=== PATIENT | male | born 1950 | race Caucasian/White ===

== ENCOUNTER 2020-12-09 12:18 | Emergency (ER) | payer OTHER, SELFPAY ==
[2020-12-09 12:46] VITALS: BP 108/71; PULSE 59; RESP 18; TEMP 36.4; O2SAT 99; BMI 29.1
--- NOTE | 2020-12-09 13:40 | ED_ITS ---
HPI - Skin/Abscess/Foreign Bdy General: Chief complaint: Animal Bite Stated complaint: Spider bite, sent by [facility] Time Seen by Provider: 12/09/20 12:54 History of Present Illness: HPI narrative: 70-year-old male presents emergency room with abscess on the left upper chest just above the mammary line. And medial. He has attempted to manipulate it to drain it at home and created a fistulous track it is now gotten more swollen and inflamed. Began last week and progressively worsened. She has been on Keflex with no improvement. Additionally he has diabetic and is on clopidogrel. MD complaint: abscess/boil Onset (ago): day(s) Tetanus up to date: unsure Location: chest Severity: moderate Quality: sharp Pain Consistency: constant Relieving factors: none Exacerbating factors: palpation and movement Associated symptoms: Reports itching; Deny arthralgias, chills, cough, fever(s), myalgias, nausea, rigidity, short of breath or vomiting Treatments prior to arrival: attempted to drain pus at home and antibiotic Review of Systems Const: Denies: fever(s) or chills ENMT: Denies: throat pain, ear or mastoid pain, nasal discharge or nasal congestion Card: Denies: chest pain, edema, dyspnea on exertion or orthopnea Resp: Denies: dyspnea, productive cough or non-productive cough GI: Denies: nausea or vomiting : Denies: flank pain, dysuria, urinary frequency or urinary urgency Skin/Breast: Denies: rash or pruritus PFSH ED PFSH: Medical History ASHD (arteriosclerotic heart disease) Atherosclerotic heart disease of [place] coronary artery without angina pectoris The EKG done today, 01/21/2020 revealed a sinus rhythm with a right bundle branch block. 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 No acute ST-T changes. Benign essential HTN Cardiomyopathy Diabetes Dyslipidemia (high LDL; low HDL) Hypertension Ischemic cardiomyopathy Mixed hyperlipidemia Surgical History S/P cataract surgery Family History Other Cancer Stroke Social History Smoking and tobacco status: never smoked Second hand smoke exposure: No Alcohol intake: never Caregiver/support person: Yes Lives independently: Yes Household members: significant other Current occupational status: employed History of recent travel: No Current gender identity: Male Special baljit needs: No Physical Exam Const: COMMON NORMALS: no acute distress GENERAL APPEARANCE: cooperative and comfortable ORIENTATION/CONSCIOUSNESS: Yes awake, Yes oriented to person, Yes oriented to place and Yes oriented to time HENMT: COMMON NORMALS: normocephalic, atraumatic and hearing grossly normal bilaterally HEAD & SCALP: normocephalic and atraumatic Neck/C-Spine: COMMON NORMALS: no JVD Resp: COMMON NORMALS: normal respiratory effort, No retractions, No use of accessory muscles and clear to auscultation bilaterally AUSCULTATION: clear to auscultation bilaterally Cardio: COMMON NORMALS: no JVD, regular rate, regular rhythm and No murmurs present (Cardio) RATE: regular rate RHYTHM: regular rhythm GI: COMMON NORMALS: Soft to palpation and No hepatosplenomegaly present AUSCULTATION: Yes normoactive bowel sounds PALPATION: Yes Soft to palpation, No Tenderness to palpation present (GI), No Guarding due to palpation present (GI) and Yes No hepatosplenomegaly present Extremity: COMMON NORMALS: normal to inspection, capillary refill normal, no clubbing, cyanosis or edema, no calf tenderness and no pedal edema Neuro: SENSORIUM/ORIENTATION: Yes oriented to person, Yes oriented to place and Yes oriented to time Skin: NARRATIVE SKIN EXAM: Erythematous fluctuant skin lesion on the left medial chest just superior to the inframammary line and medial. Immediately adjacent to the sternum. Bedside ultrasound shows a small abscess cavity disseminated out underneath the skin. There is a central darkened eschar where patient attempted to create drainage at home. Does NOT appear to be necrotic tissue that is usually associated with brown recluse bite. Procedures Abscess I/D Site: chest Local Anesthetic: lidocaine 1% and with epi Amount of anesthesia used (mL): 3 Irrigation: Yes Packing used?: plain Course Vital Signs: Vital signs: Vital Signs Temperature 97.5 F L 12/09/20 12:46 Pulse Rate 61 12/09/20 14:55 Respiratory Rate 16 12/09/20 14:55 Blood Pressure 155/87 12/09/20 14:55 Pulse Oximetry 99 12/09/20 14:55 MDM - Skin/Abscess/Foreign Bdy MDM Narrative: Medical decision making narrative: Incision and drainage cultures done started on oral antibiotics recheck if not improving return to the emergency room. Recommend that he follow-up his primary care doc tomorrow to have the packing changed. Lab Data: Labs: Lab Results 12/09/20 12/09/20 14:01 14:01 WBC 8.2 10^3/uL 10^3/ uL (4.0-10.0) RBC 3.73 10^6/uL L 10 ^6/uL (4.1-5.3) Hgb 11.2 g/dL L g/dL (11.7-16.6) Hct 33.9 % L % (42.0-52.0) MCV 90.9 fl fl (80-94) MCH 30.0 pg pg (28.0-34.0) MCHC 33.0 g/dL g/dL (30.0-36.0) RDW 12.4 % % (12.1-15.1) Plt Count 310 10^3/cmm 10^3 /cmm (130-400) MPV 9.5 fL fL (7.4-10.4) Neut % (Auto) 64.0 % % Lymph % (Auto) 19.7 % % Charlton % (Auto) 10.9 % % Eos % (Auto) 4.4 % % Baso % (Auto) 0.6 % % Neut # (Auto) 5.24 10^3/uL 10^3 /uL (1.8-7.7) Lymph # (Auto) 1.6 10^3/uL 10^3/ uL (0.8-4.8) Charlton # (Auto) 0.9 10^3/uL 10^3/ uL (0.2-0.9) Eos # (Auto) 0.4 10^3/uL 10^3/ uL (0.0-0.8) Baso # (Auto) 0.1 10^3/uL 10^3/ uL (0.0-0.1) Nucleated RBC % (a uto) 0 % % Nucleated RBCs # 0.0 /100WBC /100W BC Sodium 138 mmol/L mmol/L (136-145) Potassium 4.8 mmol/L mmol/L (3.5-5.1) Chloride 103 mmol/L mmol/L (98-107) Carbon Dioxide 28 mmol/L mmol/L (22-29) Anion Gap 11.8 (5-19) BUN 15 mg/dL mg/dL (8-23) Creatinine 0.6 mg/dL L mg/dL (0.7-1.2) GFR Calculation 133.6 mL/min H mL /min (90-130) Glucose 149 mg/dL H mg/dL (65-115) Calculated Osmolal ity 290 mOsm/kg mOsm/ kg (285-295) Calcium 9.2 mg/dL mg/dL (8.5-10.5) Total Bilirubin 0.2 mg/dL mg/dL (0.15-1.2) AST 13 U/L U/L (0-40) ALT 10 U/L U/L (0-41) Alkaline Phosphata se 55 IU/L IU/L (40-130) Total Protein 6.6 g/dL g/dL (6.6-8.7) Albumin 4.0 g/dL g/dL (3.5-5.2) Globulin 2.6 g/dL g/dL (1.3-4.6) Discharge Plan Discharge Patient Disposition: Home Clinical Impression: Cutaneous abscess of chest wall Condition: Stable Prescriptions: New Bactrim DS 800-160 mg tablet 1 tab PO BID 7 Days Qty: 14 RF: 0 hydrocodone-acetaminophen 5-325 mg tablet 1 tab PO Q6H PRN (Reason: pain) Qty: 15 RF: 0 Discontinued cephalexin 500 mg capsule 500 mg PO TID 10 Days Qty: 30 RF: 0 No Action lisinopril 20 mg tablet 20 mg PO DAILY RF: 0 isosorbide mononitrate 30 mg tablet extended release 24 hr 30 mg PO DAILY RF: 0 simvastatin 40 mg tablet 40 mg PO DAILY RF: 0 nitroglycerin [Nitrostat] 0.4 mg tablet, sublingual 0.4 mg sublingual Q5M PRNRF: 0 metoprolol tartrate 25 mg tablet 25 mg PO BID RF: 0 ibuprofen [Advil] 200 mg tablet 200 mg PO Q6H PRNRF: 0 aspirin 325 mg tablet 325 mg PO DAILY RF: 0 glipizide 5 mg tablet 5 mg PO BID RF: 0 metformin 1,000 mg tablet 1,000 mg PO BID RF: 0 clopidogrel 75 mg tablet 75 mg PO DAILY Qty: 30 RF: 3 Discharge Orders: Discharge ED (Routine); Ordered 12/09/20 Ordered By: Beka Georges Referrals: Violetta Mcnair FNP [Primary Care Provider] - Discharge Diet: Usual diet Discharge Activity: Resume usual activity Patient Instructions: Opioid Safety Activity Restrictions/Additional Instructions: Stop the Keflex, start Bactrim DS 1 p.o. twice daily until completed. Use pain medications as needed. Apply moist heat 15 minutes 3-4 times a day. Follow-up with your PCP tomorrow to have wound packing removed. Coding Level of Care Code ED Business Banking Manager for Sydneeg Fwd Exam Detailed
[2020-12-09] MEDS: tetanus-dipt-pertussis 0.5 mL SDV IM (13:50)
[2020-12-09 13:58] VITALS: RESP 16
[2020-12-09 14:16] LABS: Basophils # 0.1 10^3/uL (0.0-0.1); Basophils % 0.6 %; Eosinophils # 0.4 10^3/uL (0.0-0.8); Eosinophils % 4.4 %; Hematocrit 33.9 % (42.0-52.0); Hemoglobin 11.2 g/dL (11.7-16.6); Lymphocytes # 1.6 10^3/uL (0.8-4.8); Lymphocytes % 19.7 %; Mean Corpuscular Volume 90.9 fl (80-94); Mean Platelet Volume 9.5 fL (7.4-10.4); Monocytes # 0.9 10^3/uL (0.2-0.9); Monocytes % 10.9 %; Neutrophils # 5.24 10^3/uL (1.8-7.7); Nucleated Red Blood Cells % 0 %; Platelet Count 310 10^3/cmm (130-400); Red Blood Count 3.73 10^6/uL (4.1-5.3); Red Cell Distribution Width 12.4 % (12.1-15.1); White Blood Count 8.2 10^3/uL (4.0-10.0)
[2020-12-09 14:37] LABS: Alanine Aminotransferase 10 U/L (0-41); Alkaline Phosphatase 55 IU/L (40-130); Anion Gap 11.8 (5-19); Aspartate Amino Transferase 13 U/L (0-40); Blood Urea Nitrogen 15 mg/dL (8-23); Calcium 9.2 mg/dL (8.5-10.5); Carbon Dioxide 28 mmol/L (22-29); Chloride 103 mmol/L (98-107); Globulin 2.6 g/dL (1.3-4.6); Glomerular Filtration Rate 133.6 mL/min (90-130); Glucose 149 mg/dL (65-115); Osmolality Calculated 290 mOsm/kg (285-295); Potassium 4.8 mmol/L (3.5-5.1); Sodium 138 mmol/L (136-145); Total Bilirubin 0.2 mg/dL (0.15-1.2); Total Protein 6.6 g/dL (6.6-8.7)
[2020-12-09] MEDS: HYDROcodone-acetaminophen 5-325 mg Tablet 1 TAB PO (14:54)
[2020-12-09 14:55] VITALS: BP 155/87; PULSE 61; RESP 16; O2SAT 99
== END 2020-12-09 14:57 | disposition home or self-care (01) ==
PROVIDERS: Emergency Provider Family Medicine; PCP Nurse Practitioner Family
DX: L02.213 Cutaneous abscess of chest wall (principal); Z79.84 Long term (current) use of oral hypoglycemic drugs; Z79.02 Long term (current) use of antithrombotics/antiplatelets; Z79.82 Long term (current) use of aspirin; I25.10 Atherosclerotic heart disease of native coronary artery without angina pectoris; I10 Essential (primary) hypertension; E11.9 Type 2 diabetes mellitus without complications; E78.2 Mixed hyperlipidemia
CPT/HCPCS: 10060; 80053; 85025; 87040; 87070; 87075; 87077; 87186; 87205; 90471; 90715; 99283

== ENCOUNTER → 2021-06-21 14:06 | Outpatient (BNVA) | payer OTHER, SELFPAY | PROVIDERS: PCP Nurse Practitioner Family; Visit Provider Internal Medicine Cardiovascular Disease | DX: I25.10 Atherosclerotic heart disease of native coronary artery without angina pectoris (principal); I10 Essential (primary) hypertension; I25.5 Ischemic cardiomyopathy; E78.5 Hyperlipidemia, unspecified; Z87.891 Personal history of nicotine dependence | CPT/HCPCS: 99213; 99214 ==

== ENCOUNTER → 2022-06-20 09:44 | Outpatient (BNVA) | payer OTHER, SELFPAY | PROVIDERS: PCP Nurse Practitioner Family; Visit Provider Internal Medicine Cardiovascular Disease | DX: I25.10 Atherosclerotic heart disease of native coronary artery without angina pectoris (principal); I25.5 Ischemic cardiomyopathy; I10 Essential (primary) hypertension; E78.5 Hyperlipidemia, unspecified; I70.0 Atherosclerosis of aorta; Z79.82 Long term (current) use of aspirin | CPT/HCPCS: 99214 ==

== ENCOUNTER 2022-07-22 07:41 | Outpatient (CLI) | payer OTHER, SELFPAY ==
--- NOTE | 2022-07-22 08:00 | USCV_ITS ---
Sharif Bishop Age: 71 Gender: M : 1950 Exam Date: 07/22/2022 08:08 Ordering Phys: Shanda Jay MD ([email or web address]) Technologist: REED Exam Location: [facility] – [place] Indication: AAA SCREENING HISTORY: Diameter (cm) AP x Transverse x Length Velocity (cm/s) Waveform Prox Aorta: 2.70 x 2.57 x 71.60 Triphasic Mid Aorta: 2.28 x 2.88 x 62.10 Triphasic Distal Aorta: 1.47 x 2.08 x 92.50 Triphasic Right Iliac Prox: 1.22 x 1.60 x 121.50 Triphasic Left Iliac Prox: 1.30 x 1.21 x 132.10 Triphasic Stent Prox Landing x x Aneurysmal Sac Max x x Lt Lat Sac Dim Rt Lat Sac Dim Stent Dist Landing x x Right Iliac Stent x x Left Iliac Stent x x Right Renal Art Left Renal Art FINDINGS: CONCLUSIONS No evidence of abdominal aortic or bilateral iliac aneurysm. Justin Soriano MD (Electronically Signed) Final Date: 22 July 2022 16:36 S
== END 2022-07-22 07:42 | disposition home or self-care (01) ==
PROVIDERS: PCP Nurse Practitioner Family; Visit Provider Internal Medicine Cardiovascular Disease
DX: I70.0 Atherosclerosis of aorta (principal)
CPT/HCPCS: 93978

== ENCOUNTER → 2022-08-10 09:09 | Outpatient (BNVA) | payer OTHER, SELFPAY | PROVIDERS: PCP Nurse Practitioner Family; Visit Provider Nurse Practitioner Family | DX: I25.10 Atherosclerotic heart disease of native coronary artery without angina pectoris (principal); I10 Essential (primary) hypertension; I25.5 Ischemic cardiomyopathy | CPT/HCPCS: 99214 ==

== ENCOUNTER 2022-08-30 09:56 | Outpatient (CLI) | payer OTHER, SELFPAY ==
--- NOTE | 2022-08-30 | ECG_ITS ---
[facility] Test Date: 2022-08-30 Pat Name: Sharif Bishop Department: Room: Gender: Male Lead Qa Analyst: : 1950 Requested By: Janet Berman Order Number: [id number] Mahoney MD: Charmaine Harry M.D. Interpretive Statements NAME OF STUDY: LEXISCAN SESTAMIBI STRESS TEST INDICATION: [Dyspnea on Exertion] PROCEDURE: At the baseline, the blood pressure was 165/91 mm with a heart rate of 60 bpm. The electrocardiogram showed sinus rhythm, normal axis, Non specific T wave inversion. ??? The Lexiscan was infused over a period of 20 seconds. A total of 0.4 milligrams of Lexiscan was infused. The stress phase was continued for a total of 5 minutes. Heart rate at the end of the stress phase was 73 bpm with a blood pressure of 167/92 mm Hg. The EKG at the peak infusion revealed sinus rhythm with no significant ST-T wave changes. ??? Sestamibi was injected 20 seconds after the Lexiscan infusion. ??? Blood pressure at the end of the recovery phase was 156/81 mm Hg with a heart rate of 69 beats per minute. ??? CONCLUSION: 1. No significant EKG changes with the LexiScan infusion. 2. No LexiScan induced chest pain or cardiac arrhythmia. 3. Normal blood pressure and heart rate response. 4. Sestamibi/sestamibi perfusion scan pending; see separate report. Electronically Signed On 09-03-2022 10:25:37 CDT by Charmaine Harry M.D. [email or web address]
[2022-08-30 10:00] VITALS: BMI 28.3
--- NOTE | 2022-08-30 10:55 | NMCV_ITS ---
NM sarah perf SPECT r/s* [id number] Sharif Bishop Age: 72 Gender: M : 1950 Exam Date: 08/30/2022 11:14 Ordering Phys: Janet Berman Technologist: NORMA Tran Exam Location: [facility] Indications: HYPERTENSION, ATHEROSCLEROTIC HEART DISEASE STRESS TEST Please see separate stress test report in [facility] for full findings IMAGE PROTOCOL Rest/Stress 1 Lexiscan Day Radiopharmaceutical Dose (mCi) Administration Site Administered by Rest: Tc-99m 10.8 IV NORMA Garsia Sestamibi Stress:Tc-99m 32.4 IV NORMA Garsia Sestamibi Rest: 30-Aug-2022 60 Discovery 630 Stress: 30-Aug-2022 30 Discovery 630 0.4mg Lexiscan. Images obtained in supine and prone position. SPECT RESULTS Technical Quality: Excellent Raw Data Analysis: Image Corrections: No attenuation or motion correction applied Summed Stress Score: 18 Summed Rest Score: 22 Summed Difference Score: 1 PERFUSION FINDINGS A moderate area of moderate to severely decreased tracer uptake was noted in the basal ,mid and apical inferior, basal and mid inferolateral, apical lateral and mid anterolateral regions. Subtle area of reversibility was noted in the mid anterolateral region FUNCTIONAL RESULTS (calculated via Gated SPECT) Stress Image LV EF (%): 43 Stress EDV (mL):213 TID: 1.22 Stress ESV (mL):121 FUNCTIONAL FINDINGS: Segmental wall motion analysis revealed mild diffuse hypokinesia of the septum, inferior wall and the apex. The transient ischemic dilatation ratio was slightly increased to 1.22 IMPRESSIONS 1. Myocardial perfusion imaging revealing moderate area of moderate to severely decreased persistent tracer uptake in the inferior, inferolateral anterolateral and apical lateral regions with a subtle area of reversibility suggesting extensive myocardial scarring in the distribution of the right coronary artery and circumflex artery with a small area of possible renuka- infarction ischemia. 2. Diminished LV ejection fraction of 43%. 3. LV wall motion analysis revealing wall motion normalities as mentioned above. 4. Moderately dilated LV cavity with an end-systolic volume of 121 ml. 5. Elevated transient ischemic dilatation ratio may suggest endocardial ischemia. No similar previous studies are available for comparison Dr Shanda Jay MD FAC (Electronically Signed) Final Date: 30 August 2022 14:34 S
[2022-08-30] MEDS: regadenoson 0.4 Mg/5 ml Syringe IVP (11:52)
[2022-08-30 12:11] VITALS: BP 132/68; PULSE 72
== END 2022-08-30 09:57 | disposition home or self-care (01) ==
LOC: CDL 09:56
PROVIDERS: PCP Nurse Practitioner Family; Visit Provider Nurse Practitioner Family
DX: R06.00 Dyspnea, unspecified (principal); I10 Essential (primary) hypertension; I25.10 Atherosclerotic heart disease of native coronary artery without angina pectoris
CPT/HCPCS: 36415; 78452; 93017; 96374; A9500; J2785

== ENCOUNTER → 2023-01-09 09:04 | Outpatient (BNVA) | payer OTHER, SELFPAY | PROVIDERS: PCP Nurse Practitioner Family; Visit Provider Internal Medicine Cardiovascular Disease | DX: I25.10 Atherosclerotic heart disease of native coronary artery without angina pectoris (principal); I70.0 Atherosclerosis of aorta; I10 Essential (primary) hypertension; E11.9 Type 2 diabetes mellitus without complications; E78.5 Hyperlipidemia, unspecified; Z79.84 Long term (current) use of oral hypoglycemic drugs | CPT/HCPCS: 99214 ==

== ENCOUNTER 2023-03-15 09:25 | Observation (INO) | payer OTHER, SELFPAY ==
[2023-03-15] VITALS (34 sets, daily range): BP systolic 98–166; BP diastolic 71–88; PULSE 59–68; RESP 10–29; TEMP 36.6; O2SAT 95–98; BMI 24.4
--- NOTE | 2023-03-15 07:30 | XACV_ITS ---
Exam Room: 2 Ht: 185 cm Wt: 84 kg BSA: 2.08 m2 Gender: Male : 1950 Any Known Allergies: No known allergies Exam Priority: Routine Procedure(s): Procedure Description: Diagnostic procedure MAMIEPierre NANCE; Diagnostic Cath Status: Elective Diagnostic Findings * The left main is a medium caliber vessel which was found to have around 95% stenosis distally. * The left and descending artery was found to have mild diffuse disease proximally. Right after the first diagonal, the artery appears to be totally occluded. There is a long stented segment in the mid LAD. The LAD was found to be filling retrogradely through the right coronary artery. * The left circumflex artery is a medium caliber vessel, found to have mild diffuse disease proximally. Right after the first obtuse marginal branch, the artery appears to be totally occluded. There is a long stented segment in the mid circumflex , patient was found to be filling retrogradely through the right coronary artery. * The right coronary artery is a medium caliber dominant vessel which was found to have mild diffuse intimal irregularities with no significant stenotic lesions. The artery appears to be filling up retrogradely, theLAD and the circumflex artery through collaterals.. Conclusions 1. 72-year-old white male with history of hypertension, type 2 diabetes, dyslipidemia, previous PCI's, he is presenting with increasing episodes of chest pain, significantly limiting his exercise tolerance. He underwent left heart catheterization with left and right coronary angiogram and LV angiogram today. The findings are as follows. 2. 95% distal left main disease. Total occlusion of the mid LAD and mid circumflex. Minimal disease in the right coronary artery. Good right left collaterals filling up the LAD and circumflex arteries. LV ejection fraction of around 50%. LVEDP of 10 mmHg.. Recommendations * Patient is transferred to the medical floor in stable condition. Discussed with the family about the angiogram findings and the further management options. The patient and the family are willing to go with the surgical revascularization. Since we do not have a surgical team at the present time in this hospital, I contacted Dr. Bush at the [facility]. Dr. Bush accepted the patient's transfer for further management. Diagnostic RX Recommendation: CABG LV EDP: 15 mmHg Ventriculography Ejection Fraction: 50.0 % Left Ventriculography Findings: * The LV gram was performed the LEAVITT projection. The LV gram was a suboptimal quality because of the poor filling of the ventricle. There is mild diffuse hypokinesia of the left ventricle. The overall ejection fraction was around 50%. The LVEDP was 15 mmHg. Pressures Phase:Rest AO : 130 / 79 ( 102 ) @ 8:54:00 AM 124 / 82 ( 103 ) @ 8:56:00 AM 137 / 66 ( 96 ) @ 9:04:00 AM 147 / 61 ( 97 ) @ 9:04:00 AM LV : 135 / -12 / 10 @ 9:03:00 AM 146 / -4 / 16 @ 9:04:00 AM 145 / -6 / 15 @ 9:04:00 AM Valves Phase:DefaultPhase AV : 6.0 @ 9:11:00 AM AV Mean Gradient: 12.0 @ 9:11:00 AM Clinical Evaluation EBL: 5mL-10mL Procedural Details Procedure Consent Obtained. Current Diagnosis : Chest Pain. Pre-Procedure Time Out. Identified patient by full name and date of as verbalized by the patient/guarantor. Does the consent match the physician's order: Yes. Accurate & Complete Informed Consent: Yes. Inpatient/Outpatient History & Physical on Chart: Yes. If H&P is completed, is and addenduem needed: Yes; If yes, is the addendum complete: Yes. Visualize and Verify Site with Patient/Guarantor: N/A. Relevant Radiology Images available: Yes. Pre-op teaching completed and patient verbalized understanding. The risks, benefits, and alternatives of sedation and/or procedure were discussed by physician. The patient agrees to continue. Procedure started. [facility] Clinical Fraility Score: 3: Managing Well. Stabber Indications: Worsening Angina. Chest Pain Symptom Assessment: Atypical Angina. Correct patient, site and procedure confirmed by cath team. Current diagnosis: Chest Pain. PERRLA. Strong, equal hand center lead consultant bilaterally. Lungs clear x 5 lobes. IV Site on Arrival: 20 gauge in the right anticubital. IV Fluids: 0.9% NaCl at KVO. 0 mL infused prior to labor/excavator. Pre Procedural Pulses: bilateral dorsalis pedis was 3+. Pre Procedural Pulses: bilateral posterior tibial was 3+. Pre Procedural Pulses: bilateral radial was 3+. Oxygen started at 2liters/min via nasal canula. bilateral groins was prepped with chloroprep then draped in the usual sterile fashion. Physician arrived. Baseline sample Acquired. HR: 63 BPM. Physician scrubbed in. Immediate Pre-Procedure Time Out. Correct Patient: Yes; Correct Procedure: Yes; Correct Site: Yes; Correct Patient Position: Yes; Correct Supplies: Yes; Dried Flammable Prep: Yes; Blood Products Available: N/A;. Lidocaine 1% infiltrated to the right groin. Arterial access obtained with micropuncture set. A 5 ukrainian JL4 catheter in over wire. Multiple views taken of left coronary artery. Catheter removed over the standard wire. A 5 ukrainian JR4 catheter in over wire. Multiple views taken of right coronary artery. Catheter removed over the standard wire. A 5 ukrainian Angled Pig catheter in over wire. EDP Sample taken: LV 135/-13,10; HR: 66 BPM; SpO2: 93%. LV gram performed in LEAVITT @ 10 mL/second for a total of 30 mL. EDP Sample taken: LV 146/-5,16; HR: 70 BPM; SpO2: 94%. Pullback taken: LV Off; AO Off; Mean: , Peak to Peak: , SEP: ; HR: 69 BPM; SpO2: 91%. Pullback taken: LV 145/-7,15; AO 137/66(96); Mean: 12mmHg, Peak to Peak: 6mmHg, SEP: 18sec/min; HR: 66 BPM; SpO2: 93%. Catheter removed over the standard wire. Physician scrubbed out. A Suture was successful obtaining hemostatsis at the Right Femoral artery insertion site. Vital chart was stopped. Arterial sheath flushed and connected to tranducer and pressure bag with heparinized saline. Post Procedure: Pulses reassessed and unchanged. PERRLA. Strong, equal hand center lead consultant bilaterally. No VTE prophylaxis required. Medication's Wasted: Lidocaine 1% = 10 mL. Medication's Wasted: Heparin = 4500 units. Total IV fluids: 350 mL. Post-op diagnosis: CAD. Complications: None. Estimated blood loss: 5mL-10mL. Responsiveness - Normal response to verbal stimuli; alert and oriented, PERRLA. Airway - Unaffected, no intervention required; spontaneous ventilation. Circulation: W/N/L, pulses unchanged. Nausea/Vomiting: No. Procedure completed. Patient transferred by bed to 1st floor. Access Site Site: Right Femoral artery Sheath Size: 5 Fr Hemostasis Method: Suture Hemostasis Success: Successful Procedure Medications Start: 8:46 AM Stop: 8:46 AM Medication: 0.9% Saline Amount: ml Route: I.V. bolus Start: 8:46 AM Stop: 8:46 AM Medication: Versed Amount: 1 mg Route: I.V. Start: 8:46 AM Stop: 8:46 AM Medication: Fentanyl Amount: 50 mcg Start: 8:58 AM Stop: 8:58 AM Medication: Heparin Amount: 1500 units Route: I.V. I, the attending physician, have reviewed and verified all procedure medications. Yes, all medications given per verbal order History/Risk Factors Hypertension: No Dyslipidemia: No Peripheral Arterial Disease (PAD): No Myocardial Infarction (LA): No Obesity: No Renal Disease: No Tobacco Use: Never Prior Interventions PCI: Yes CABG: No Valve Surgery: No Date of PCI: 05/25/2016 Report Signatures Finalized by Dr Shanda Jay MD [facility] on 03/15/2023 09:54 AM
[2023-03-15] MEDS: aspirin 325 mg Tablet PO ×2 (08:00→10:56)
[2023-03-15] MEDS: diphenhydrAMINE 50 mg Capsule PO (08:00)
[2023-03-15 08:07] LABS: Basophils # 0.1 10^3/uL (0.0-0.1); Basophils % 0.9 %; Eosinophils # 0.3 10^3/uL (0.0-0.8); Eosinophils % 3.3 %; Hematocrit 40.5 % (37-53); Lymphocytes # 1.8 10^3/uL (0.8-4.8); Lymphocytes % 23.6 %; Mean Corpuscular HGB Conc 33.8 g/dL (30-55); Mean Corpuscular Hemoglobin 29.1 pg (27-33); Mean Corpuscular Volume 86.2 fl (82-101); Mean Platelet Volume 9.3 fL (7.4-10.4); Monocytes # 0.8 10^3/uL (0.2-0.9); Monocytes % 10.3 %; Neutrophils # 4.66 10^3/uL (1.8-7.7); Neutrophils % 61.5 %; Nucleated Red Blood Cells % 0 %; Platelet Count 326 10^3/cmm (157-399); Red Cell Distribution Width 12.5 % (12.1-15.1); White Blood Count 7.58 10^3/uL (3.29-11.43)
--- NOTE | 2023-03-15 08:10 | PM.HP ---
Providers/Chief Complaint Primary Care Provider: DEISY Guerrero Chief Complaint: I25.10, R94.39, R07.9 History of Present Illness Sharif Bishop is a 72 year old male with a history of hypertension, type 2 diabetes, dyslipidemia and atherosclerotic heart disease is present with complaints of increasing chest pain. He had a myocardial perfusion imaging in August 2022. He was found to have areas of fixed defect with small areas of reversible defect, suggesting myocardial scarring with a possible infarct and ischemia. It was decided to treat him medically in the beginning. Lately he has been having increasing episodes of chest pain especially with activities. The symptoms are limiting his level of exertion. Because of his ongoing symptoms, in order to further evaluate his coronary status, a cardiac catheterization was recommended. He had the most recent cardiac catheterization in 2017.?Results ?- Subtotal occlusion of the second obtuse marginal artery Moderate to severe disease in the proximal LAD Mild disease in the other vessels Diminished LV ejection fraction of 45% LVDP of 10 mmHg. ?Second obtuse marginal lesion was 99% stenosed. He underwent plain old balloon angioplasty followed by stenting. Excellent angiographic result. Review of Systems Narrative: CONSTITUTIONAL: No fever or chills. EYES: No blurring of vision or other visual disturbances lately. ENT: No hoarseness of voice, auditory disturbances or sore throat. CARDIOVASCULAR: As mentioned above. RESPIRATORY: No significant cough. GASTROINTESTINAL: No hematemesis or melena. GENITOURINARY: No dysuria or hematuria. INTEGUMENTARY: No skin rashes or history of skin cancer. NEURO: No transient ischemic attacks or amaurosis. PSYCHIATRIC: No history of psychosis or major depression. HEMATOLOGIC: No bleeding disorders or significant anemia. ENDOCRINE: No history of polyuria or polydipsia. MUSCULOSKELETAL: No recent joint pain or swelling. ALLERGY/IMMUNOLOGY: As mentioned above. Medications/Allergies Home Medications Medication Instructions Recorded Confirmed Last Taken Type clopidogrel 75 mg tablet 75 mg PO DAILY #30 tabs 04/22/19 03/15/23 03/14/23 09:00 Rx aspirin 325 mg tablet 325 mg PO DAILY 01/21/20 03/15/23 03/14/23 09:00 History glipizide 5 mg tablet 5 mg PO BID 01/21/20 03/15/23 03/14/23 21:00 History ibuprofen 200 mg tablet (Advil) 200 mg PO Q6H PRN Pain 01/21/20 03/15/23 03/14/23 21:00 History metformin 1,000 mg tablet 1,000 mg PO BID 01/21/20 03/15/23 03/14/23 21:00 History metoprolol tartrate 25 mg tablet 25 mg PO BID 01/21/20 03/15/23 03/14/23 21:00 History nitroglycerin 0.4 mg sublingual 0.4 mg sublingual Q5M PRN Chest 01/21/20 03/15/23 Unknown History tablet (Nitrostat) Pain simvastatin 40 mg tablet 40 mg PO DAILY 01/21/20 03/15/23 03/14/23 09:00 History lisinopril 40 mg tablet 40 mg PO DAILY #90 tabs 06/20/22 03/15/23 03/14/23 09:00 Rx isosorbide mononitrate 30 mg 30 mg PO BID 08/30/22 03/15/23 03/14/23 09:00 History tablet,extended release 24 hr Allergies Allergy/AdvReac Type Severity Reaction Status Date / Time No Known Allergies Allergy Verified 03/15/23 08:27 PFSH Acute PFSH: Medical History Dyslipidemia (high LDL; low HDL) Benign essential HTN Atherosclerotic heart disease of [place] coronary artery without angina pectoris The EKG done today, 01/21/2020 revealed a sinus rhythm with a right bundle branch block. 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 No acute ST-T changes. Ischemic cardiomyopathy Cardiomyopathy Diabetes Mixed hyperlipidemia Hypertension ASHD (arteriosclerotic heart disease) Surgical History S/P cataract surgery Family History Other Cancer Stroke Social History Smoking and tobacco/nicotine status: never used tobacco/nicotine Second hand smoke exposure: No Alcohol intake: never Substance/Drug Use: never Caregiver/support person: Yes Lives independently: Yes Household members: significant other Current occupational status: employed Current gender identity: Male Special baljit needs: No Physical Exam Narrative: GENERAL: The patient is alert and oriented times three. Not in any acute distress. HEENT: No significant pallor, icterus or lymphadenopathy.Oral cavity: There are no mucous membrane lesions. NECK: Trachea appears to be central. No masses noted. No JVD or thyromegaly appreciated. RESPIRATORY: Chest is symmetrical. No intercostals muscle retraction or any accessory muscle activation. There is no chest wall tenderness. Breath sounds are heard bilaterally. No rales or rhonchi heard. No evidence of any consolidation. BREASTS: Deferred. HEART: The heart sounds are normal. No S3 or S4. Short systolic murmur in the left sternal border. No diastolic murmurs. No pericardial rub ABDOMEN: No vessel pulsations or distention. No tenderness. No organomegaly appreciated. Bowel sounds are normally heard. : Deferred. RECTAL: Deferred. LYMPHATIC: No lymphadenopathy noted in the neck. EXTREMITIES: No edema or cyanosis. No clubbing. MUSCULOSKELETAL: No acute joint deformities or swelling SKIN: There are no significant rashes or ecchymosis NEUROPSYCHIATRIC: The patient is alert and oriented x3. Appears to be in a good mood. No tremors or rigidity noted. Data 03/15/23 08:00 03/15/23 08:00 Other Labs: Laboratory Last Values WBC 7.58 10^3/uL (3.29-11.43) 03/15/23 08:00 RBC 4.70 10^6/uL (3.85-5.65) 03/15/23 08:00 Hgb 13.70 g/dL (11.27-16.99) 03/15/23 08:00 Hct 40.5 % (37-53) 03/15/23 08:00 MCV 86.2 fl (82-101) 03/15/23 08:00 MCH 29.1 pg (27-33) 03/15/23 08:00 MCHC 33.8 g/dL (30-55) 03/15/23 08:00 RDW 12.5 % (12.1-15.1) 03/15/23 08:00 Plt Count 326 10^3/cmm (157-399) 03/15/23 08:00 MPV 9.3 fL (7.4-10.4) 03/15/23 08:00 Neut % (Auto) 61.5 % 03/15/23 08:00 Lymph % (Auto) 23.6 % 03/15/23 08:00 [place] % (Auto) 10.3 % 03/15/23 08:00 Eos % (Auto) 3.3 % 03/15/23 08:00 Baso % (Auto) 0.9 % 03/15/23 08:00 Neut # (Auto) 4.66 10^3/uL (1.8-7.7) 03/15/23 08:00 Lymph # (Auto) 1.8 10^3/uL (0.8-4.8) 03/15/23 08:00 [place] # (Auto) 0.8 10^3/uL (0.2-0.9) 03/15/23 08:00 Eos # (Auto) 0.3 10^3/uL (0.0-0.8) 03/15/23 08:00 Baso # (Auto) 0.1 10^3/uL (0.0-0.1) 03/15/23 08:00 Nucleated RBC % (auto) 0 % 03/15/23 08:00 Nucleated RBCs # 0.0 /100WBC 03/15/23 08:00 Other data: MPI in August 2022 1. Myocardial perfusion imaging revealing moderate area of moderate to severely decreased persistent tracer uptake in the inferior, inferolateral anterolateral and apical lateral regions with a subtle area of reversibility suggesting extensive myocardial scarring in the distribution of the right coronary artery and circumflex artery with a small area of possible renuka- infarction ischemia. 2. Diminished LV ejection fraction of 43%. 3. LV wall motion analysis revealing wall motion normalities as mentioned above. 4. Moderately dilated LV cavity with an end-systolic volume of 121 ml. 5. Elevated transient ischemic dilatation ratio may suggest endocardial ischemia. No similar previous studies are available for comparison A&P Assessment and plan (1) Atherosclerotic heart disease of [place] coronary artery with unstable angina pectoris: In view of the patient's ongoing episodes of chest pain with recent worsening, inorder to further evaluate his coronary status, a cardiac catheterization was thought to be appropriate. This was discussed with the patient in detail which she understood well and consented to proceed Qualifiers: [place] vs. transplanted heart: [place] heart Qualified Code(s): I25.110 - Atherosclerotic heart disease of [place] coronary artery with unstable angina pectoris (2) Hypertension: Currently normotensive. May continue on the current medications. Qualifiers: Hypertension type: primary hypertension Qualified Code(s): I10 - Essential (primary) hypertension (3) Mixed hyperlipidemia: Will continue on the current medications (4) Abdominal aortic atherosclerosis: Continue on the current management. Follow-up evaluation as scheduled. Plan Discussed with the patient the risk and benefits of the procedure. The risk of bleeding, hematoma, vascular injury, myocardial infarction, myocardial perforation, malignant cardiac arrhythmias ,CVA, renal failure and other concomitant complications were explained in detail. Patient understood this well and consented to proceed. Based on the results of the angiogram, further management decisions will be made. Attestations Medical Necessity Statement*: Patient may require 1 midnight stay for further management of his condition Coding Level of Care Code 30806 Diagnoses Atherosclerosis of [place] coronary artery of [place] heart with unstable angina pectoris I25.110 [place] vs. transplanted heart: [place] heart Primary hypertension I10 Hypertension type: primary hypertension Mixed hyperlipidemia E78.2 Abdominal aortic atherosclerosis I70.0
[2023-03-15 08:34] LABS: Anion Gap 14.5 (5-19); Blood Urea Nitrogen 20 mg/dL (8-23); Calcium 9.8 mg/dL (8.5-10.5); Carbon Dioxide 27 mmol/L (22-29); Chloride 101 mmol/L (98-107); Glucose 222 mg/dL (65-115); Osmolality Calculated 295 mOsm/kg (285-295); Potassium 4.5 mmol/L (3.5-5.1); Sodium 138 mmol/L (136-145)
--- NOTE | 2023-03-15 08:34 | P.HPUD_ITS ---
Surgery/Procedure H&P Update DATE OF PROCEDURE: March 15, 2023 DATE H&P PERFORMED: 03/15/23 H&P UPDATE INFORMATION: I have reviewed H&P completed within last 30 days, I have examined patient prior to procedure and No changes to prior documentation PREOP DIAGNOSIS: ASHD with worsening angina PRIMARY INDICATION FOR PROCEDURE: Patient with increasing episodes of chest pain with activities. Abnormal Myocardial perfusion imaging. Previous PCI PLANNED PROCEDURE: Operation Date: 03/15/23 08:30 Proposed Procedures p [facility] [address], I25.10, R94.39, R07.9(Not Applicable) - Shanda Jay MD PATIENT REASSESSED PRIOR TO SEDATION, WITH NO CHANGE NOTED: Yes PHYSICAL EXAM: alert, oriented x 3, clear to auscultation bilaterally and regular rate & rhythm AIRWAY EVAL/ANESTHESIA PLAN: normal airway, see other exam findings, ASA III, Monitored Anesthesia, Local Anesthesia, Risks, benefits & alternatives of sedation and/or procedure discussed and Patient agrees to continue as planned
--- NOTE | 2023-03-15 09:55 | P.TS_ITS ---
Transfer Summary Providers Date of Admission: 03/15/23 09:25 Date of Discharge/Transfer: 03/15/23 Attending Provider at Admission: Dr. BETH Jay Attending Provider at Transfer: Shanda Jay MD Consults: None Primary Care Provider: DEISY Guerrero Transfer Plans: Anticipated date of transfer: 03/15/23 . Receiving Facility: [facility] in [facility] . Receiving Provider: Dr. Bush . Diagnoses at Discharge Discharge Diagnosis (1) Atherosclerotic heart disease of [place] coronary artery with unstable angina pectoris: Details from hospital stay: Patient had a cardiac catheterization today. He was found to have a critical left main lesion of 95%. Total occlusion of the mid LAD and circumflex artery. Minimal disease in the right coronary artery with a good right to left collaterals. Status: Acute Qualifiers: [place] vs. transplanted heart: [place] heart Qualified Code(s): I25.110 - Atherosclerotic heart disease of [place] coronary artery with unstable angina pectoris (2) Hypertension: Details from hospital stay: Currently normotensive Status: Acute Qualifiers: Hypertension type: primary hypertension Qualified Code(s): I10 - Essential (primary) hypertension (3) Mixed hyperlipidemia: Details from hospital stay: On statin drug. Status: Acute (4) Abdominal aortic atherosclerosis: Status: Acute (5) Diabetes: Details from hospital stay: Fairly under control. Normal kidney function Status: Acute Qualifiers: Diabetes mellitus complication status: without complication Diabetes mellitus shelter insulin use: without shelter use Diabetes mellitus type: type 2 Qualified Code(s): E11.9 - Type 2 diabetes mellitus without complications Reason for Visit Reason for Visit I25.10, R94.39, R07.9 Brief History: This patient was admitted to the hospital following the cardiac catheterization. He underwent the left heart catheterization with left and right coronary angiogram and LV angiogram today. He was found to have critical left main disease, total occlusion of the mid LAD and circumflex artery. Right coronary artery was found to have mild disease. Good right left collaterals. Hospital Course Hospital Course Patient remained totally asymptomatic throughout the hospital course. He was having exertional angina, limiting his activities as an outpatient. Because of the angiographic findings and the presenting symptoms, it was thought to be appropriate to consider an urgent revascularization. Based on the angiogram findings, a surgical revascularization was thought to be the most appropriate procedure. I discussed this with the patient and family in detail which they understood well and consented to proceed. Since we do not have a surgical team in the hospital at this time, I contacted Dr. Bush at the [facility]. Dr. Bush accepted the patient transfer for further management. Physical Exam Narrative: GENERAL: The patient is alert and oriented times three. Not in any acute distress. HEENT: No significant pallor, icterus or lymphadenopathy.Oral cavity: There are no mucous membrane lesions. NECK: Trachea appears to be central. No masses noted. No JVD or thyromegaly appreciated. RESPIRATORY: Chest is symmetrical. No intercostals muscle retraction or any accessory muscle activation. There is no chest wall tenderness. Breath sounds are heard bilaterally. No rales or rhonchi heard. No evidence of any consolidation. BREASTS: Deferred. HEART: The heart sounds are normal. No S3 or S4. No significant murmurs. No pericardial rub ABDOMEN: No vessel pulsations or distention. No tenderness. No organomegaly appreciated. Bowel sounds are normally heard. : Deferred. RECTAL: Deferred. LYMPHATIC: No lymphadenopathy noted in the neck. EXTREMITIES: Right groin has no hematoma bleeding. MUSCULOSKELETAL: No acute joint deformities or swelling SKIN: There are no significant rashes or ecchymosis NEUROPSYCHIATRIC: The patient is alert and oriented x3. Appears to be in a good mood. No tremors or rigidity noted. TS Data Studies Completed and Pending Pending at discharge Category Date Time Status LICENSED CLINICIAN request for service Routine Exams 03/15/23 07:30 Taken Laboratory Last Values WBC 7.58 10^3/uL (3.29-11.43) 03/15/23 08:00 RBC 4.70 10^6/uL (3.85-5.65) 03/15/23 08:00 Hgb 13.70 g/dL (11.27-16.99) 03/15/23 08:00 Hct 40.5 % (37-53) 03/15/23 08:00 MCV 86.2 fl (82-101) 03/15/23 08:00 MCH 29.1 pg (27-33) 03/15/23 08:00 MCHC 33.8 g/dL (30-55) 03/15/23 08:00 RDW 12.5 % (12.1-15.1) 03/15/23 08:00 Plt Count 326 10^3/cmm (157-399) 03/15/23 08:00 MPV 9.3 fL (7.4-10.4) 03/15/23 08:00 Neut % (Auto) 61.5 % 03/15/23 08:00 Lymph % (Auto) 23.6 % 03/15/23 08:00 Cross % (Auto) 10.3 % 03/15/23 08:00 Eos % (Auto) 3.3 % 03/15/23 08:00 Baso % (Auto) 0.9 % 03/15/23 08:00 Neut # (Auto) 4.66 10^3/uL (1.8-7.7) 03/15/23 08:00 Lymph # (Auto) 1.8 10^3/uL (0.8-4.8) 03/15/23 08:00 Cross # (Auto) 0.8 10^3/uL (0.2-0.9) 03/15/23 08:00 Eos # (Auto) 0.3 10^3/uL (0.0-0.8) 03/15/23 08:00 Baso # (Auto) 0.1 10^3/uL (0.0-0.1) 03/15/23 08:00 Nucleated RBC % (auto) 0 % 03/15/23 08:00 Nucleated RBCs # 0.0 /100WBC 03/15/23 08:00 Sodium 138 mmol/L (136-145) 03/15/23 08:00 Potassium 4.5 mmol/L (3.5-5.1) 03/15/23 08:00 Chloride 101 mmol/L (98-107) 03/15/23 08:00 Carbon Dioxide 27 mmol/L (22-29) 03/15/23 08:00 Anion Gap 14.5 (5-19) 03/15/23 08:00 BUN 20 mg/dL (8-23) 03/15/23 08:00 Creatinine 0.9 mg/dL (0.7-1.2) 03/15/23 08:00 GFR Calculation Not Reportable 03/15/23 08:00 Glucose 222 mg/dL (65-115) H 03/15/23 08:00 Calculated Osmolality 295 mOsm/kg (285-295) 03/15/23 08:00 Calcium 9.8 mg/dL (8.5-10.5) 03/15/23 08:00 Recent Clincial Data Last Vital Signs Temp 97.9 F 03/15/23 08:21 Pulse 68 03/15/23 08:21 Resp 18 03/15/23 08:21 BP 148/87 03/15/23 08:21 Pulse Ox 97 03/15/23 08:21 O2 Del Method Room Air 03/15/23 08:21 Vital Signs Temp Pulse Resp BP Pulse Ox O2 Del Method 03/15/23 08:21 97.9 F 68 18 148/87 97 Room Air 03/15/23 08:12 Room Air Intake & Output/Weight 03/13/23 03/14/23 03/15/23 03/16/23 06:59 06:59 06:59 06:59 Weight 185 lb Procedures Performed Left heart catheterization with left and right coronary angiogram and LV angiogram. Please refer to the cardiac catheterization report for detail Vitals Last Vital Signs Temp 97.9 F 03/15/23 08:21 Pulse 68 03/15/23 08:21 Resp 18 03/15/23 08:21 BP 148/87 03/15/23 08:21 Pulse Ox 97 03/15/23 08:21 O2 Del Method Room Air 03/15/23 08:21 TS Medications Medications Aspirin (Aspirin 325 Mg Tablet) 325 mg PO DAILY [facility] Atorvastatin Calcium (Atorvastatin 40 Mg Tablet) 20 mg PO DAILY [facility] Clopidogrel Bisulfate (Clopidogrel 75 Mg Tablet) 75 mg PO DAILY [facility] Sodium Chloride (Sodium Chloride 0.9%) 1,000 mls @ 50 mls/hr IV .Q20H ONE Stop: 03/16/23 03:29 Last Admin: 03/15/23 08:00 Dose: Not Given Ibuprofen (Ibuprofen 200 Mg Tablet) 200 mg PO Q6H PRN PRN Reason: Pain Isosorbide Mononitrate (Isosorbide Mononitrate Er 30 Mg Tablet) 30 mg PO BID [facility] Lisinopril (Lisinopril 20 Mg Tablet) 40 mg PO DAILY [facility] Metoprolol Tartrate (Metoprolol Tartrate 25 Mg Tablet) 25 mg PO BID [facility] Nitroglycerin (Nitroglycerin 0.4 Mg Sublingual Tablet) 0.4 mg SUBLINGUAL Q5M PRN PRN Reason: Chest Pain Non-Formulary Medication (Glipizide) 5 mg PO BID JANETH Discontinued Medications Aspirin (Aspirin 325 Mg Tablet) 325 mg PO ONCE ONE Stop: 03/15/23 07:31 Last Admin: 03/15/23 08:00 Dose: 325 mg Diphenhydramine HCl (Diphenhydramine 50 Mg Capsule) 50 mg PO ONCE ONE Stop: 03/15/23 07:31 Last Admin: 03/15/23 08:00 Dose: 50 mg Fentanyl (Fentanyl 50 Mcg/Ml Inj 2ml) Confirm Administered Dose 100 mcg .ROUTE .STK-MED ONE Stop: 03/15/23 08:24 Heparin Sodium (Porcine) (Heparin 5,000 Unit/Ml Inj 1 Ml) Confirm Administered Dose 5,000 unit .ROUTE .STK-MED ONE Stop: 03/15/23 08:09 Heparin Sodium (Porcine) (Heparin 5,000 Unit/Ml Inj 1 Ml) Confirm Administered Dose 5,000 unit .ROUTE .STK-MED ONE Stop: 03/15/23 08:24 Lidocaine HCl (Xylocaine) Confirm Administered Dose 20 mls @ as directed .ROUTE .STK-MED ONE Stop: 03/15/23 08:24 Sodium Chloride (Sodium Chloride 0.9%) Confirm Administered Dose 1,000 mls @ as directed .ROUTE .STK-MED ONE Stop: 03/15/23 08:40 Midazolam HCl (Midazolam 1 Mg/Ml Inj 2 Ml) Confirm Administered Dose 2 mg .ROUTE .STK-MED ONE Stop: 03/15/23 08:24 Midazolam HCl (Midazolam 1 Mg/Ml Inj 2 Ml) Confirm Administered Dose 2 mg .ROUTE .STK-MED ONE Stop: 03/15/23 08:56 Allergies No Known Allergies Allergy (Verified 03/15/23 08:27) Home Medications clopidogrel 75 mg tablet 75 mg PO DAILY #30 tabs 04/22/19 [Rx Confirmed 03/15/23] aspirin 325 mg tablet 325 mg PO DAILY 01/21/20 [History Confirmed 03/15/23] glipizide 5 mg tablet 5 mg PO BID 01/21/20 [History Confirmed 03/15/23] ibuprofen 200 mg tablet (Advil) 200 mg PO Q6H PRN Pain 01/21/20 [History Confirmed 03/15/23] metformin 1,000 mg tablet 1,000 mg PO BID 01/21/20 [History Confirmed 03/15/23] metoprolol tartrate 25 mg tablet 25 mg PO BID 01/21/20 [History Confirmed 03/15/23] nitroglycerin 0.4 mg sublingual tablet (Nitrostat) 0.4 mg sublingual Q5M PRN Chest Pain 01/21/20 [History Confirmed 03/15/23] simvastatin 40 mg tablet 40 mg PO DAILY 01/21/20 [History Confirmed 03/15/23] lisinopril 40 mg tablet 40 mg PO DAILY #90 tabs 06/20/22 [Rx Confirmed 03/15/23] isosorbide mononitrate 30 mg tablet,extended release 24 hr 30 mg PO BID 08/30/22 [History Confirmed 03/15/23] Discharge Plan Discharge Patient Disposition: Home Condition: Stable Prescriptions: Continued simvastatin 40 mg tablet 40 mg PO DAILY nitroglycerin [Nitrostat] 0.4 mg tablet, sublingual 0.4 mg sublingual Q5M PRN (Reason: Chest Pain) Rx Instructions: do not exceed 3 doses per episode metoprolol tartrate 25 mg tablet 25 mg PO BID ibuprofen [Advil] 200 mg tablet 200 mg PO Q6H PRN (Reason: Pain) aspirin 325 mg tablet 325 mg PO DAILY glipizide 5 mg tablet 5 mg PO BID lisinopril 40 mg tablet 40 mg PO DAILY Qty: 90 3RF clopidogrel 75 mg tablet 75 mg PO DAILY Qty: 30 3RF isosorbide mononitrate 30 mg tablet extended release 24 hr 30 mg PO BID Held metformin 1,000 mg tablet 1,000 mg PO BID Hold Instructions: Resume on 03/18/23. Discharge Orders: Discharge Order (Routine); Ordered 03/15/23 Ordered By: Shanda Jay Patient Instructions: Opioid Safety Transfer Attestations Time Spent in Transfer Care: greater than 30 min Quality Metrics Clinical Quality Measures [ No reported AMI, CVA or VTE this stay] Coding Level of Care Code Acute Code for g Fwd Diagnoses Atherosclerosis of [place] coronary artery of [place] heart with unstable angina pectoris I25.110 [place] vs. transplanted heart: [place] heart Primary hypertension I10 Hypertension type: primary hypertension Mixed hyperlipidemia E78.2 Abdominal aortic atherosclerosis I70.0 Type 2 diabetes mellitus without complication, without long-term current use of insulin E11.9 Diabetes mellitus complication status: without complication Diabetes mellitus intermodal customer service insulin use: without shelter use Diabetes mellitus type: type 2
[2023-03-15] MEDS: isosorbide mononitrate ER 30 mg Tablet PO (10:56)
[2023-03-15] MEDS: lisinopril 20 mg Tablet 40 MG PO (10:56)
[2023-03-15] MEDS: atorvastatin 40 mg Tablet 20 MG PO (10:57)
[2023-03-15] MEDS: metoprolol tartrate 25 mg Tablet PO (10:57)
[2023-03-15 11:05] LABS: Glucose Point of Care 171 mg/dL (70-110)
--- NOTE | 2023-03-15 11:22 | PC.NURSE ---
received from cardiac industrial laborer at 0915.report received.pt was alert and awake and oriented x 4.denied pain.sr on monitor.right femoral sheath intact to pressurized system.no hematoma noted.sheath pulled at 0950.pressure held x 20 min.no hematoma formation noted.site dressed with 2x2 gauze then secured with biocclusive drsg.pt instructed in activity restrictions and instructed to notify staff for any bleeding,pain,numbness,or for any concerns at all.pt verb understanding of instructions
--- NOTE | 2023-03-15 12:10 | PC.NURSE ---
discharged via [facility] for transport to [facility]
== END 2023-03-15 12:13 | disposition short-term general hospital (02) ==
LOC: CSU 09:25
PROVIDERS: Admitting Provider Internal Medicine Cardiovascular Disease; PCP Nurse Practitioner Family; Visit Provider Internal Medicine Cardiovascular Disease
DX: I25.110 Atherosclerotic heart disease of native coronary artery with unstable angina pectoris (principal); I10 Essential (primary) hypertension; E78.2 Mixed hyperlipidemia; I70.0 Atherosclerosis of aorta; E11.9 Type 2 diabetes mellitus without complications; Z79.82 Long term (current) use of aspirin
CPT/HCPCS: 36415; 36416; 80048; 82962; 85025; 93458; 96365; 99152; 99153; C1769; C1887; C1894; G0378; J1644; J2250; J3010; J7030; Q0163; Q9967

== ENCOUNTER → 2023-05-08 13:37 | Outpatient (BNVA) | payer OTHER, SELFPAY | PROVIDERS: PCP Nurse Practitioner Family; Visit Provider Nurse Practitioner Family | DX: I25.10 Atherosclerotic heart disease of native coronary artery without angina pectoris (principal); I10 Essential (primary) hypertension | CPT/HCPCS: 99214 ==

== ENCOUNTER 2023-05-10 18:23 | Emergency (ER) | payer OTHER, SELFPAY ==
[2023-05-10 18:27] VITALS: BP 134/83; PULSE 92; RESP 18; TEMP 36.6; O2SAT 96
--- NOTE | 2023-05-10 18:43 | W.ED.WOUNDLC ---
HPI - Wound/Laceration General: Chief Complaint: Wound/Laceration Stated Complaint: cut finger deep around recent heart surgury Time Seen by Provider: 05/10/23 18:40 Source: patient Mode of arrival: ambulatory Limitations: no limitations History of Present Illness: 72-year-old male states he cut his left index finger with a skill saw. He does have a laceration proximal l part of his index finger over the flexor surface he has full range of motion he has pain he rates it 3 out of 10 denies any other injuries. 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 Dr. Kashmir Solo [place] Ischemic cardiomyopathy Cardiomyopathy Diabetes Mixed hyperlipidemia Hypertension ASHD (arteriosclerotic heart disease) Surgical History S/P cataract surgery Family History Other Cancer Stroke Social History Smoking and tobacco/nicotine status: never used tobacco/nicotine Second hand smoke exposure: No Alcohol intake: never Substance/Drug Use: never Caregiver/support person: Yes Lives independently: Yes Household members: significant other Current occupational status: employed Current gender identity: Male Special baljit needs: No Physical Exam Const: COMMON NORMALS: no acute distress, patient oriented x3 and healthy appearing HENMT: COMMON NORMALS: normocephalic and atraumatic HEAD & SCALP: normocephalic and atraumatic Neck/C-Spine: COMMON NORMALS: full ROM and supple Chest: COMMONS NORMALS: normal inspection of the chest Resp: COMMON NORMALS: normal respiratory effort Cardio: COMMON NORMALS: regular rate RATE: regular rate Extremity: COMMON NORMALS: full ROM NARRATIVE EXTREMITY EXAM: 2 cm laceration to proximal index finger no tendon involvement he has good strength full range of motion Neuro: COMMON NORMALS: patient oriented x3, moves all extremities and no focal motor deficits Psych: COMMON NORMALS: mental status grossly normal, Normal thought process present and cooperative THOUGHT PROCESS: Normal thought process present Skin: COMMON NORMALS: no rashes or lesions noted and no wounds GENERAL SKIN EXAM: no rashes or lesions noted Procedures Laceration Laceration 1: Site: hand Side (If applicable): left Size (cm): 3 Description: linear Depth: simple, single layer Local Anesthetic: lidocaine 1% Amount of anesthesia used (mL): 7 Pre-repair: wound explored, irrigated extensively and deep structures intact Skin layer closed with: nylon Size (cm): 5-0 Number of sutures: 10 Technique: simple, interrupted Course Vital Signs: Vital signs: Vital Signs Temperature 97.9 F 05/10/23 18:27 Pulse Rate 92 05/10/23 18:27 Respiratory Rate 18 05/10/23 18:27 Blood Pressure 134/83 05/10/23 18:27 Pulse Oximetry 96 05/10/23 18:27 Oxygen Delivery Me thod Room Air 05/10/23 18:27 MDM - Wound/Laceration Medical Decision Making Patient presents with laceration to left index finger laceration was repaired here he has no tendon involvement wound is clean he is got full range of motion and strength he is stable for discharge follow-up with PCP he is to have sutures out in 1 week return if worsening. Medical Records I reviewed the patient's medical records. No radiology studies performed this visit Discharge Plan Discharge Patient Disposition: Home Clinical Impression: Laceration Condition: Stable Prescriptions: New cephalexin 500 mg capsule 500 mg PO TID 7 Days Qty: 21 0RF No Action nitroglycerin [Nitrostat] 0.4 mg tablet, sublingual 0.4 mg sublingual Q5M PRN (Reason: Chest Pain) Rx Instructions: do not exceed 3 doses per episode ibuprofen [Advil] 200 mg tablet 200 mg PO Q6H PRN (Reason: Pain) aspirin 325 mg tablet 325 mg PO DAILY glipizide 5 mg tablet 5 mg PO BID lisinopril 40 mg tablet 40 mg PO DAILY Qty: 90 3RF Hold Instructions: Home Medication placed on hold at Doctor's office atorvastatin 80 mg tablet 80 mg PO DAILY metoprolol tartrate 50 mg tablet 50 mg PO BID Discharge Orders: Discharge ED (Routine); Ordered 05/10/23 Ordered By: Malena Campbell Referrals: Violetta Mcnair FNP [Primary Care Provider] - Discharge Diet: Advance as tolerated Discharge Activity: Resume usual activity Patient Instructions: Care For Your Stitches (ED), Laceration (ED) Activity Restrictions/Additional Instructions: suture removal in 7 days Coding Level of Care Code ED Rn Labor And Delivery for Demetra Watkins
[2023-05-10] MEDS: tetanus-dipt-pertussis 0.5 mL SDV IM (19:20)
[2023-05-10 19:33] VITALS: RESP 18
== END 2023-05-10 19:33 | disposition home or self-care (01) ==
PROVIDERS: Emergency Provider Emergency Medicine; PCP Nurse Practitioner Family
DX: S61.211A Laceration without foreign body of left index finger without damage to nail, initial encounter (principal); Z79.82 Long term (current) use of aspirin; Z79.84 Long term (current) use of oral hypoglycemic drugs; E78.5 Hyperlipidemia, unspecified; I10 Essential (primary) hypertension; I25.10 Atherosclerotic heart disease of native coronary artery without angina pectoris; I25.5 Ischemic cardiomyopathy; E78.2 Mixed hyperlipidemia; E11.9 Type 2 diabetes mellitus without complications; W27.0XXA Contact with workbench tool, initial encounter; Z23 Encounter for immunization
CPT/HCPCS: 12002; 90471; 90715; 99283

== ENCOUNTER → 2023-07-25 10:06 | Outpatient (BNVA) | payer OTHER, SELFPAY | PROVIDERS: PCP Nurse Practitioner Family; Visit Provider Internal Medicine Cardiovascular Disease | DX: I25.10 Atherosclerotic heart disease of native coronary artery without angina pectoris (principal); E78.2 Mixed hyperlipidemia; I25.5 Ischemic cardiomyopathy; I10 Essential (primary) hypertension | CPT/HCPCS: 99214 ==

== ENCOUNTER 2023-08-14 17:22 | Emergency (ER) | payer OTHER, SELFPAY ==
[2023-08-14 17:25] VITALS: BP 177/105; PULSE 94; RESP 22; TEMP 36.8; O2SAT 98; BMI 28.3
--- NOTE | 2023-08-14 17:29 | XRR_ITS ---
PROCEDURE INFORMATION: Exam: XR Right Hand Exam date and time: 08/14/2023 5:36 PM Age: 73 years old Clinical indication: Injury or trauma; Other: Cut RT hand; Amputation, traumatic; Right TECHNIQUE: Imaging protocol: Radiologic exam of the right hand. Views: 3 or more views. COMPARISON: No relevant prior studies available. FINDINGS: Bones/joints: Apparent partial traumatic amputation of the 3rd distal phalanx. Age-indeterminate amputation of the 5th distal phalanx. Probable minimally displaced fracture of the distal aspect of the 5th middle phalanx. Scattered degenerative changes. 2-3 mm linear hyperdensity in the subcutaneous tissues adjacent to the 2nd middle phalanx suggesting tiny foreign body. Soft tissues: Normal. XR/XR hand RT min 3V* [id number] IMPRESSION: 1. Apparent partial traumatic amputation of the 3rd distal phalanx. Correlate with physical exam. 2. Age-indeterminate amputation of the 5th distal phalanx. Correlate with physical exam. 3. Probable minimally displaced fracture of the distal aspect of the 5th middle phalanx. 4. 2-3 mm linear hyperdensity in the subcutaneous tissues adjacent to the 2nd middle phalanx suggesting tiny foreign body.
--- NOTE | 2023-08-14 17:37 | ED_ITS ---
HPI - Wound/Laceration 2 General: Chief Complaint: Wound/Laceration Stated Complaint: right fingers lac Time Seen by Provider: 08/14/23 17:27 Source: patient Mode of arrival: ambulatory Limitations: no limitations History of Present Illness: 73-year-old male states that he changing a toilet been running an auger down a drain pipe and cut his right hand in the auger he is amputated his tip of his right ring and pinky finger. His pain he rates a 6 out of 10 denies any other injuries. No bleeding at this time. 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 Dr. [facility] Ischemic cardiomyopathy Cardiomyopathy Diabetes Mixed hyperlipidemia Hypertension ASHD (arteriosclerotic heart disease) Surgical History S/P cataract surgery Family History Other Cancer Stroke Social History Smoking and tobacco/nicotine status: never used tobacco/nicotine Second hand smoke exposure: No Alcohol intake: never Substance/Drug Use: never Caregiver/support person: Yes Lives independently: Yes Household members: significant other Current occupational status: employed Current gender identity: Male Special baljit needs: No Physical Exam 2 Const: COMMON NORMALS: no acute distress, patient oriented x3 and healthy appearing HENMT: COMMON NORMALS: normocephalic and atraumatic HEAD & SCALP: n ormocephalic and atraumatic Neck/C-Spine: COMMON NORMALS: full ROM and supple Chest: COMMONS NORMALS: normal inspection of the chest Resp: COMMON NORMALS: normal respiratory effort and No use of accessory muscles Cardio: COMMON NORMALS: regular rate, regular rhythm and No murmurs present (Cardio) RATE: regular rate RHYTHM: regular rhythm Extremity: COMMON NORMALS: full ROM NARRATIVE EXTREMITY EXAM: Distal amputation to right ring and pinky finger Neuro: COMMON NORMALS: patient oriented x3, moves all extremities and no focal motor deficits Psych: COMMON NORMALS: mental status grossly normal, Normal thought process present and cooperative THOUGHT PROCESS: Normal thought process present Skin: COMMON NORMALS: no rashes or lesions noted and no wounds GENERAL SKIN EXAM: no rashes or lesions noted Procedures Nerve Block Nerve Block 1: Time out performed: Yes Local Anesthetic: bupivacaine 0.5% Amount of anesthesia used (mL): 10 Side: right Nerve Blocks: digital (pinky finger ring block) Procedure Successful: Yes Patient Tolerated Procedure: well Complications: none Nerve Block 2: Time out performed: Yes Local Anesthetic: bupivacaine 0.5% Amount of anesthesia used (mL): 10 Side: right Nerve Blocks: digital (ring block ring finger) Procedure Successful: Yes Patient Tolerated Procedure: well Complications: none Course 2 Vital Signs: Vital signs: Vital Signs Temperature 98.2 F 08/14/23 17:25 Pulse Rate 94 08/14/23 17:25 Respiratory Rate 22 H 08/14/23 17:25 Blood Pressure 177/105 08/14/23 17:25 Pulse Oximetry 98 08/14/23 17:25 Oxygen Delivery Me thod Room Air 08/14/23 17:25 MDM - Wound/Laceration Medical Decision Making Patient presents with partial amputations to right ring and pinky fingers. Did do ring blocks and loss of fingers did give him Ancef dressed the wounds spoke to orthopedics here who feels patient needs hand surgery did speak to [facility] will transfer there for higher level of care for hand surgery. Lab Data 08/14/23 17:30 08/14/23 17:30 Laboratory Results WBC 9.05 10^3/uL (3.29-11.43) 08/14/23 17:30 RBC 4.87 10^6/uL (3.85-5.65) 08/14/23 17:30 Hgb 14.00 g/dL (11.27-16.99) 08/14/23 17:30 Hct 41.6 % (37-53) 08/14/23 17:30 MCV 85.4 fl (82-101) 08/14/23 17:30 MCH 28.7 pg (27-33) 08/14/23 17:30 MCHC 33.7 g/dL (30-55) 08/14/23 17:30 RDW 13.7 % (12.1-15.1) 08/14/23 17:30 Plt Count 352 10^3/cmm (157-399) 08/14/23 17:30 MPV 9.1 fL (7.4-10.4) 08/14/23 17:30 Neut % (Auto) 65.3 % 08/14/23 17:30 Lymph % (Auto) 22.1 % 08/14/23 17:30 [place] % (Auto) 8.8 % 08/14/23 17:30 Eos % (Auto) 2.8 % 08/14/23 17:30 Baso % (Auto) 0.6 % 08/14/23 17:30 Neut # (Auto) 5.91 10^3/uL (1.8-7.7) 08/14/23 17:30 Lymph # (Auto) 2.0 10^3/uL (0.8-4.8) 08/14/23 17:30 [place] # (Auto) 0.8 10^3/uL (0.2-0.9) 08/14/23 17:30 Eos # (Auto) 0.3 10^3/uL (0.0-0.8) 08/14/23 17:30 Baso # (Auto) 0.1 10^3/uL (0.0-0.1) 08/14/23 17:30 Nucleated RBC % (auto) 0 % 08/14/23 17: Nucleated RBCs # 0.0 /100WBC 08/14/23 17:30 All radiology interpretation(s) finalized by discharge Discharge Plan Discharge Condition: Stable Prescriptions: No Action nitroglycerin [Nitrostat] 0.4 mg tablet, sublingual 0.4 mg sublingual Q5M PRN (Reason: Chest Pain) Rx Instructions: do not exceed 3 doses per episode ibuprofen [Advil] 200 mg tablet 200 mg PO Q6H PRN (Reason: Pain) aspirin 325 mg tablet 325 mg PO DAILY glipizide 5 mg tablet 5 mg PO BID lisinopril 40 mg tablet 40 mg PO DAILY Qty: 90 3RF Hold Instructions: Home Medication placed on hold at Doctor's office atorvastatin 80 mg tablet 80 mg PO DAILY metoprolol tartrate 50 mg tablet 50 mg PO BID tamsulosin 0.4 mg capsule 0.4 mg PO DAILY Referrals: Violetta Mcnair, EDISY [Primary Care Provider] - Coding Level of Care Code ED Letterer for Demetra Watkins
[2023-08-14 17:39] LABS: Basophils # 0.1 10^3/uL (0.0-0.1); Basophils % 0.6 %; Eosinophils # 0.3 10^3/uL (0.0-0.8); Eosinophils % 2.8 %; Hematocrit 41.6 % (37-53); Lymphocytes % 22.1 %; Mean Corpuscular HGB Conc 33.7 g/dL (30-55); Mean Corpuscular Hemoglobin 28.7 pg (27-33); Mean Corpuscular Volume 85.4 fl (82-101); Mean Platelet Volume 9.1 fL (7.4-10.4); Monocytes # 0.8 10^3/uL (0.2-0.9); Monocytes % 8.8 %; Neutrophils # 5.91 10^3/uL (1.8-7.7); Neutrophils % 65.3 %; Nucleated Red Blood Cells % 0 %; Platelet Count 352 10^3/cmm (157-399); Red Blood Count 4.87 10^6/uL (3.85-5.65); Red Cell Distribution Width 13.7 % (12.1-15.1); White Blood Count 9.05 10^3/uL (3.29-11.43)
[2023-08-14] MEDS: ceFAZolin 2,000 MG in sodium chloride 0.9% (plus) 50 ML 100 MG IV (17:49)
[2023-08-14 18:04] VITALS: RESP 19; O2SAT 98
[2023-08-14] MEDS: HYDROmorphone 1 mg/mL INJ 1 mL IVP (18:04)
[2023-08-14] MEDS: BUPivacaine 0.5% INJ 30 mL INJECTION (18:05)
[2023-08-14] MEDS: ondansetron 2 mg/ML SDV 2 mL 4 MG IVP (18:05)
[2023-08-14 18:06] LABS: Blood Urea Nitrogen 21 mg/dL (8-23); Creatinine Clr Calc Pharmacy 102.6479; Sodium 143 mmol/L (136-145)
[2023-08-14 18:10] LABS: Calcium 7.9 mg/dL (8.5-10.5); Carbon Dioxide 19 mmol/L (22-29); Chloride 111 mmol/L (98-107); Glucose 156 mg/dL (65-115); Osmolality Calculated 302 mOsm/kg (285-295)
[2023-08-14 18:13] LABS: Anion Gap 16.6 (5-19); Potassium 3.6 mmol/L (3.5-5.1)
[2023-08-14] MEDS: tetanus-dipt-pertussis 0.5 mL SDV IM (18:15)
[2023-08-14 18:35] VITALS: BP 166/84; PULSE 73; RESP 19; O2SAT 95
== END 2023-08-14 18:38 ==
PROVIDERS: Emergency Provider Emergency Medicine; PCP Nurse Practitioner Family
DX: S68.124A Partial traumatic metacarpophalangeal amputation of right ring finger, initial encounter (principal); S68.126A Partial traumatic metacarpophalangeal amputation of right little finger, initial encounter; I25.10 Atherosclerotic heart disease of native coronary artery without angina pectoris; I11.9 Hypertensive heart disease without heart failure; I43 Cardiomyopathy in diseases classified elsewhere; E11.9 Type 2 diabetes mellitus without complications; Z95.1 Presence of aortocoronary bypass graft; E78.2 Mixed hyperlipidemia; Z23 Encounter for immunization; W31.89XA Contact with other specified machinery, initial encounter
CPT/HCPCS: 36415; 64450; 73130; 80048; 85025; 90471; 90715; 96365; 96375; 99285; J0690; J1170; J2405; J3490

== ENCOUNTER → 2024-01-31 10:12 | Outpatient (BNVA) | payer OTHER, SELFPAY | PROVIDERS: PCP Nurse Practitioner Family; Visit Provider Internal Medicine Cardiovascular Disease | DX: I25.10 Atherosclerotic heart disease of native coronary artery without angina pectoris (principal); I10 Essential (primary) hypertension; E78.2 Mixed hyperlipidemia; I25.5 Ischemic cardiomyopathy; Z87.891 Personal history of nicotine dependence | CPT/HCPCS: 99214 ==

== ENCOUNTER → 2024-08-06 09:41 | Outpatient (BNVA) | payer OTHER, SELFPAY | PROVIDERS: PCP Nurse Practitioner Family; Visit Provider Nurse Practitioner Family | DX: I25.10 Atherosclerotic heart disease of native coronary artery without angina pectoris (principal); I10 Essential (primary) hypertension; E11.9 Type 2 diabetes mellitus without complications; Z79.84 Long term (current) use of oral hypoglycemic drugs; E78.2 Mixed hyperlipidemia; Z79.82 Long term (current) use of aspirin; Z95.1 Presence of aortocoronary bypass graft; Z87.891 Personal history of nicotine dependence | CPT/HCPCS: 99214 ==